=== PATIENT | female | born 1985 | race Caucasian/White ===

== ENCOUNTER 2024-12-08 17:17 | Emergency (ER) | payer OTHER ==
[~2024-12-08] VITALS: Ht 162.5 cm; Wt 97.5 kg
[2024-12-08] MEDS ORDERED: Ketorolac Tromethamine 60 MG/2 ML VIAL IM ONE (18:05)
[2024-12-08] MEDS ORDERED: methylPREDNISolone sod succ 125 MG VIAL IM ONE (18:55)
[2024-12-08] MEDS ORDERED: methylPREDNISolone sod succ 1,000 MG/16 ML VIAL IM ONE (18:55)
[2024-12-08] MEDS ORDERED: diphenhydrAMINE hydrochloride 50 MG/ML VIAL IV ONE (19:30)
[2024-12-08] MEDS ORDERED: SODIUM CHLORIDE 0.9% 1,000 ML IV ONE (19:30)
[2024-12-08] MEDS ORDERED: Metoclopramide Hydrochloride 10 MG/2 ML VIAL IV ONE (19:45)
== END 2024-12-08 20:32 | disposition home or self-care (01) ==
LOC: ED 17:17
DX: G43.909 Migraine, unspecified, not intractable, without status migrainosus (principal); M54.2 Cervicalgia; R11.0 Nausea